=== PATIENT | male | born 1985 | race Two or more races ===

== ENCOUNTER 2018-09-16 19:05 | Emergency (ER) | payer OTHER ==
[~2018-09-16] VITALS: Ht 185.4 cm; Wt 113.4 kg
[2018-09-16] MEDS ORDERED: PNEU16DI2 (19:19)
[2018-09-16] MEDS ORDERED: PANADOL EXTRA500 MG (19:19)
[2018-09-16] MEDS ORDERED: OSEL75CA PO (21:26)
[2018-09-16] MEDS ORDERED: PROMETHAZINE W473 ML PO (21:26)
[2018-09-16] MEDS ORDERED: ZOFRAN ODT8 MG PO (21:26)
[2018-09-16] MEDS ORDERED: DOLOGESIC 500-1 EACH PO (21:26)
== END 2018-09-16 21:42 | disposition home or self-care (01) ==
LOC: ER 19:05
DX: J09.X2 Influenza due to identified novel influenza A virus with other respiratory manifestations (principal)